=== PATIENT | female | born 1980 | race Caucasian/White ===

== ENCOUNTER → 2020-02-17 11:31 | Outpatient (BNVA) | payer OTHER, SELFPAY | PROVIDERS: Family Provider Nurse Practitioner; PCP Nurse Practitioner; Visit Provider Nurse Practitioner Family | DX: Z11.1 Encounter for screening for respiratory tuberculosis (principal) | CPT/HCPCS: 86480 ==

== ENCOUNTER 2020-09-08 13:38 | Outpatient (CLI) | payer OTHER, SELFPAY ==
--- NOTE | 2020-09-08 13:47 | MR_ITS ---
WS: [id number] MRI HEAD WITHOUT AND WITH GADOLINIUM ENHANCEMENT WITH ATTENTION TO THE ORBITS. TECHNIQUE: Sagittal T1, T2 axial, T2 axial FLAIR, axial susceptibility weighted imaging, axial diffus ion weighted images, and coronal T2 images were obtained. Pre and post-T1 axial and post T1 coronal i mages. ADC and FSPGR images. Post gadolinium images were obtained of the orbits with fat saturation t echnique. CLINICAL INFORMATION: VISUAL FIELD DEFECT COMPARISON: None. FINDINGS: No evidence of restricted diffusion to suggest acute ischemia. Ventricular system and basal cisterns are patent. No suspicious intracranial signal abnormalities. Normal valero-white differentiation. Aruna l posterior fossa. Normal vascular flow voids at the skull base. No extra-axial fluid collections. Pa rtial opacification right mastoid air cells. Incidental perivascular space left basal ganglia. Mild m ucosal thickening ethmoid air cells. No hemosiderin on susceptibly weighted images. Normal optic chiasm and pituitary infundibulum. Normal prechiasmatic optic nerves. Normal sella. Norm al cavernous sinuses and Meckel's cave. Proximal 7th and 8th cranial nerves appear normal. Normal tri geminal nerve root entry zones. No optic nerve edema. No abnormal intracranial enhancement. No abnormal optic nerve enhancement to indicate optic neuritis. Normal rectus muscles. Normal dural venous sinuses. MR/MR head orbits wo/w* [id number] IMPRESSION: 1. No evidence of restricted diffusion to suggest acute ischemia. 2. No suspicious intracranial signal abnormalities. 3. Partial opacification right mastoid air cells. 4. Normal optic chiasm and pituitary infundibulum. 5. Optic nerves are normal in appearance. Normal rectus muscles. 6. No optic nerve edema or optic neuritis. 7. No abnormal intracranial enhancement. 8. No other significant findings.
== END 2020-09-08 13:39 | disposition home or self-care (01) ==
LOC: RADWPI 13:44
PROVIDERS: PCP Nurse Practitioner; Visit Provider Optometrist
DX: H53.452 Other localized visual field defect, left eye (principal)
CPT/HCPCS: 70543; 70553; A9577

== ENCOUNTER → 2020-09-09 14:38 | Outpatient (BNVA) | payer OTHER, SELFPAY | PROVIDERS: Family Provider Nurse Practitioner; PCP Nurse Practitioner; Visit Provider Nurse Practitioner Family | DX: Z12.4 Encounter for screening for malignant neoplasm of cervix (principal); Z12.31 Encounter for screening mammogram for malignant neoplasm of breast; Z84.81 Family history of carrier of genetic disease | CPT/HCPCS: 88175 ==

== ENCOUNTER → 2020-12-07 09:59 | Outpatient (BNVA) | payer OTHER, SELFPAY | PROVIDERS: Family Provider Nurse Practitioner; PCP Nurse Practitioner; Visit Provider Nurse Practitioner Family | DX: I10 Essential (primary) hypertension (principal); E11.65 Type 2 diabetes mellitus with hyperglycemia; B37.3 Candidiasis of vulva and vagina | CPT/HCPCS: 80053; 80061; 83036; 85025 ==

== ENCOUNTER → 2022-04-12 10:18 | Outpatient (BNVA) | payer MEDICAID, SELFPAY | PROVIDERS: Family Provider Nurse Practitioner; PCP Nurse Practitioner; Visit Provider Nurse Practitioner Family | DX: Z11.1 Encounter for screening for respiratory tuberculosis (principal) | CPT/HCPCS: 86480 ==

== ENCOUNTER → 2023-06-12 10:41 | Outpatient (BNVA) | payer BC, SELFPAY | PROVIDERS: Family Provider Nurse Practitioner; PCP Nurse Practitioner; Visit Provider Nurse Practitioner Family | DX: I10 Essential (primary) hypertension (principal); E11.9 Type 2 diabetes mellitus without complications | CPT/HCPCS: 80053; 83036; 84443 ==